=== PATIENT | female | born 1985 | race Caucasian/White ===

== ENCOUNTER 2016-11-05 22:16 | Inpatient (IN) | payer MEDICAID ==
[~2016-11-05 22:16] MED LIST: CLINDAMYCIN 900 MG/D5W RTU 50 ML IV SCH
[2016-11-05] MEDS ORDERED: CLINDAMYCIN 900 MG/D5W RTU 50 ML IV ONE (22:44)
[2016-11-05] MEDS ORDERED: CLINDAMYCIN 900 MG/D5W RTU 50 ML IV SCH (22:45)
[2016-11-05 22:59] LABS: HEMOGLOBIN 10.1 g/dL (12.0-15.5); HGB HCT DIFFERENCE 0.3; MEAN CORPUSCULAR HEMOGLOBIN 28.7 pg (27.0-33.4); MEAN CORPUSCULAR HGB CONC 33.6 g/dL (32.0-36.0); MEAN CORPUSCULAR VOLUME 85 fl (80-97); RED BLOOD COUNT 3.52 10^6/uL (3.72-5.28); RED CELL DISTRIBUTION WIDTH 15.6 % (11.5-14.0); WHITE BLOOD COUNT 23.5 10^3/uL (4.0-10.5)
[2016-11-05 23:16] LABS: BASOPHILS % (MANUAL) 0 % (0-2); EOSINOPHILS % (MANUAL) 1 % (0-6); LYMPHOCYTES % (MANUAL) 19 % (13-45); TOTAL CELLS COUNTED 100
[2016-11-05 23:17] LABS: ANISOCYTOSIS SLIGHT; TOXIC GRANULATION SLIGHT
[2016-11-05] MEDS ORDERED: ONDANSETRON HCL INJ/PF 4 MG/2 ML SDV IV ONE (23:56)
[2016-11-05] MEDS ORDERED: OXYTOCIN/NORMAL SALINE 1,000 ML IV PRN (23:57)
[2016-11-05] MEDS ORDERED: NALBUPHINE HCL INJ 10 MG/1 ML AMPULE ONE (23:59)
[2016-11-05] MEDS ORDERED: OXYTOCIN/NORMAL SALINE 20 UNIT/1,000 ML RTUINJ ONE (23:59)
[2016-11-06] MEDS ORDERED: PROMETHAZINE HCL INJ 25 MG/1 ML VIAL ONE (00:04)
[2016-11-06] MEDS ORDERED: NALBUPHINE HCL INJ 10 MG/1 ML AMPULE INJ ONE (00:06)
[2016-11-06] MEDS ORDERED: PROMETHAZINE HCL INJ 25 MG/1 ML VIAL IV ONE (00:06)
[2016-11-06 00:08] LABS: APPEARANCE,URINE CLOUDY; BILIRUBIN,URINE NEGATIVE (NEGATIVE); GLUCOSE, URINE NEGATIVE (NEGATIVE); KETONES,URINE TRACE mg/dL (NEGATIVE); LEUKOCYTE ESTERASE,URINE SMALL (NEGATIVE); NITRITE,URINE NEGATIVE (NEGATIVE); PROTEIN,URINE 100 mg/dL (NEGATIVE); URINE SPECIFIC GRAVITY 1.016; UROBILINOGEN,URINE NEGATIVE mg/dL (<2.0)
[2016-11-06] MEDS ORDERED: RINGERS SOLUTION,LACTATED 1,000 ML IV PRN (00:14)
[2016-11-06] MEDS: RINGERS SOLUTION,LACTATED 1,000 ML IV PRN ×2 (00:33→17:01)
[2016-11-06 00:34] LABS: URINE BARBITURATES SCREEN NEGATIVE; URINE METHADONE SCREEN NEGATIVE; URINE OPIATES LOW NEGATIVE; URINE PHENCYCLIDINE SCREEN NEGATIVE
[2016-11-06] MEDS ORDERED: CITRIC ACID/SODIUM CITRATE ORAL SOLN 15 ML UDCUP ONE (01:21)
[2016-11-06] MEDS ORDERED: METHYLERGONOVINE MALEATE INJ/PF 0.2 MG/1 ML AMPULE ONE (01:21)
[2016-11-06] MEDS ORDERED: MISOPROSTOL 0.2 MG TABLET ONE (01:21)
[2016-11-06] MEDS ORDERED: METRONIDAZOLE 500 MG/NS RTU 100 ML IV ONE (01:21)
[2016-11-06] MEDS ORDERED: OXYTOCIN 10 UNIT/ML VIAL ONE (01:37)
[2016-11-06] MEDS ORDERED: EPHEDRINE SULFATE INJ 50 MG/1 ML AMPULE ONE (01:37)
[2016-11-06] MEDS ORDERED: OXYTOCIN/NORMAL SALINE 20 UNIT/1,000 ML RTUINJ ONE (01:37)
[2016-11-06] MEDS ORDERED: MIDAZOLAM 2 MG/2 ML INJ ONE (01:37)
[2016-11-06] MEDS ORDERED: FENTANYL CITRATE INJ/PF 100 MCG/2 ML AMPUL ONE ×3 (01:37→03:06)
[2016-11-06] MEDS ORDERED: MORPHINE SULFATE 10 MG/ML INJ ONE ×2 (01:45→03:26)
[2016-11-06] MEDS ORDERED: MORPHINE SULFATE 10 MG/ML INJ IV PRN ×2 (02:40→03:01)
[2016-11-06] MEDS ORDERED: PROMETHAZINE HCL INJ 25 MG/1 ML VIAL IV PRN ×3 (02:40→03:01)
[2016-11-06] MEDS ORDERED: SIMETHICONE 80 MG TAB.CHEW PO PRN (02:40)
[2016-11-06] MEDS ORDERED: ACETAMINOPHEN 100 ML IV PRN (02:40)
[2016-11-06] MEDS ORDERED: OXYCODONE-ACETAMINOPHEN 5-325 MG TABLET PO PRN (02:40)
[2016-11-06] MEDS ORDERED: OXYTOCIN/NORMAL SALINE 20 UNIT/1,000 ML RTUINJ IV PRN (02:40)
[2016-11-06] MEDS ORDERED: MEASLES,MUMPS&RUBELLA VACC/PF 0.5 ML VIAL SUBCUT PRN (02:40)
[2016-11-06] MEDS ORDERED: DIPH/PERTUSS(ACELL)/TETANUS VAC/PF 0.5 ML SYR (>=10YO) IM PRN (02:40)
[2016-11-06] MEDS ORDERED: ACETAMINOPHEN 325 MG TABLET PO PRN (02:40)
[2016-11-06] MEDS ORDERED: KETOROLAC TROMETHAMINE INJ/PF 30 MG/1 ML SDV IV SCH (02:45)
[2016-11-06] MEDS ORDERED: ACETAMINOPHEN 100 ML IV ONE (02:48)
[2016-11-06] MEDS ORDERED: MEPERIDINE HCL/PF INJ 25 MG/1 ML DISP.SYRIN ONE (02:56)
[2016-11-06] MEDS ORDERED: PROPOFOL INJ 200 MG/20 ML VIAL IV ONE (02:58)
[2016-11-06] MEDS ORDERED: MEPERIDINE HCL/PF INJ 25 MG/1 ML DISP.SYRIN IV PRN (03:01)
[2016-11-06] MEDS ORDERED: ONDANSETRON HCL INJ/PF 4 MG/2 ML SDV IV PRN (03:01)
[2016-11-06] MEDS ORDERED: FENTANYL CITRATE INJ/PF 100 MCG/2 ML AMPUL IV PRN ×3 (03:01)
[2016-11-06] MEDS ORDERED: DIPHENHYDRAMINE HCL 50 MG/ML VIAL IV PRN (03:01)
[2016-11-06 03:35] LABS: HEMATOCRIT 24.1 % (36.0-47.0); HEMOGLOBIN 8.2 g/dL (12.0-15.5); HGB HCT DIFFERENCE 0.5; MEAN CORPUSCULAR HEMOGLOBIN 29.1 pg (27.0-33.4); MEAN CORPUSCULAR HGB CONC 34.1 g/dL (32.0-36.0); MEAN CORPUSCULAR VOLUME 85 fl (80-97); RED BLOOD COUNT 2.82 10^6/uL (3.72-5.28); RED CELL DISTRIBUTION WIDTH 15.5 % (11.5-14.0)
[2016-11-06 04:01] LABS: BAND NEUTROPHILS % (MANUAL) 1 % (3-5); BASOPHILS % (MANUAL) 0 % (0-2); EOSINOPHILS % (MANUAL) 0 % (0-6); LYMPHOCYTES % (MANUAL) 10 % (13-45); TOTAL CELLS COUNTED 100
[2016-11-06 04:02] LABS: TOXIC GRANULATION 1+
[2016-11-06 04:03] LABS: ANISOCYTOSIS 1+; POLYCHROMASIA 1+
--- NOTE | 2016-11-06 04:03 | OPERATIVE REPORT E ---
Operative Report NAME: GAURAV PITT : 1985 AGE: 31Y DATE OF SURGERY: 11/06/2016 ROOM: LR200 PREOPERATIVE DIAGNOSES: 1. INTRAUTERINE AT 37 WEEKS AND 1 DAY. 2. NONREASSURING HEART TONES. 3. SUSPECTED PLACENTAL ABRUPTION. POSTOPERATIVE DIAGNOSES: 1. INTRAUTERINE AT 37 WEEKS AND 1 DAY. 2. NONREASSURING HEART TONES. 3. CONFIRMATION OF PLACENTAL ABRUPTION. PROCEDURE PERFORMED: Low transverse hysterotomy section. SURGEON: JORDON ALCOCER M.D. ANESTHESIA: Dr. Short with general. FINDINGS: A male in cephalic presentation with Apgars of 7 and 8. Large blood clots behind the placenta indicative of at least a 50% placental abruption. Normal uterus, tubes, and ovaries. ESTIMATED BLOOD LOSS: 700 mL. PATHOLOGY: Placenta. PROCEDURE IN DETAIL: The patient was taken to the operating room, prepared and draped in a normal sterile fashion in a supine position with a leftward tilt. A transverse skin incision was made with a scalpel and carried to the underlying layer of fascia with the same scalpel. The fascia was excised in the midline and extended laterally bluntly, and the rectus muscle was dissected bluntly from the fascia over the rectus. This muscle was divided, and peritoneal cavity was entered quickly with surgeon's finger pressure. The bladder blade was inserted. Hysterotomy was nicked with the scalpel and extended laterally with surgeon's finger pressure. The was then delivered atraumatically. The nose and mouth were suctioned with the suction bulb. The cord was clamped and cut. The was handed off to waiting pediatricians. The uterus was exteriorized and cleared of clots and debris. The hysterotomy extension down the right sidewall of the cervix was noted. This was closed with 0 Monocryl in a running locked fashion. A second layer of the same suture was used to imbricate to ensure hemostasis. The hysterotomy was inspected and found to be intact and hemostatic. The uterus was then returned to the abdomen. The peritoneal cavity was cleared of clots and debris. The rectus muscle and peritoneum were reapproximated with a mattress stitch of 2-0 Chromic. The fascia was closed with 0 Vicryl. The subcutaneous layer was closed with plain catgut, and the skin was closed with 4-0 Vicryl. The patient tolerated the procedure well. Sponge, lap, and needle counts were correct x2. The patient was taken to recovery in stable condition. DICTATING PHYSICIAN: JORDON ALCOCER M.D. [id number] PHY#: [id number] ID: [id number] JOB#: [id number] ACCT: [id number] cc:JORDON ALCOCER M.D. >
[2016-11-06] MEDS ORDERED: GENTAMICIN SULFATE INJ 80 MG/2 ML VIAL IV ONE (04:13)
[2016-11-06] MEDS ORDERED: GENTAMICIN SULFATE INJ 80 MG/2 ML VIAL ONE (04:24)
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
[2016-11-06] MEDS: IBUPROFEN 800 MG TABLET PO SCH ×3 (05:52→18:24)
[2016-11-06] MEDS ORDERED: METRONIDAZOLE 500 MG/NS RTU 100 ML IV SCH (06:00)
[2016-11-06] MEDS: CLINDAMYCIN 900 MG/D5W RTU 50 ML IV SCH ×3 (06:54→21:57)
--- NOTE | 2016-11-06 07:00 | L&D Flow Sheet ---
LD Flowsheet Datetime Report Generated by CPN: 11/06/2016 07:00 Datetime: 11/06/2016 04:45 Vital Signs Stage of : Recovery (Rianna Ureña RN) NBP Sys/Serene/Mean (mmHg): 117 (QS system process) : 59 (QS system process) : 83 (QS system process) Pulse: 79 (QS system process) Temperature (F): 97.2 (Rianna Ureña RN) Temperature (C): 36.2 (QS system process) Pain Pain Scale: 2 (Rianna Errichiello, RN) Pain Presence: Intermittent (Rianna Errichiello, RN) Pain Type: Ache (Rianna Errichiello, RN) Pain Location: Abdomen (Rianna Errichiello, RN) Pain Goal: 1 (Rianna Errichiello, RN) Datetime: 11/06/2016 04:40 Pulse: 71 (QS system process) SpO2 (%): 100 (QS system process) Datetime: 11/06/2016 04:35 Pulse: 74 (QS system process) SpO2 (%): 100 (QS system process) Datetime: 11/06/2016 04:30 Vital Signs Stage of : Recovery (Rianna Errichiello, RN) NBP Sys/Serene/Mean (mmHg): 115 (QS system process) : 57 (QS system process) : 81 (QS system process) Pulse: 75 (QS system process) Pulse: 70 (QS system process) SpO2 (%): 100 (QS system process) Pain Pain Scale: 2 (Rianna Errichiello, RN) Pain Presence: Intermittent (Rianna Errichiello, RN) Pain Type: Ache (Rianna Errichiello, RN) Pain Location: Abdomen (Rianna Errichiello, RN) Pain Goal: 1 (Rianna Errichiello, RN) Datetime: 11/06/2016 04:25 Pulse: 70 (QS system process) SpO2 (%): 100 (QS system process) Datetime: 11/06/2016 04:20 Pulse: 71 (QS system process) SpO2 (%): 100 (QS system process) Datetime: 11/06/2016 04:15 Vital Signs Stage of : Recovery (Rianna Ureña RN) NBP Sys/Serene/Mean (mmHg): 119 (QS system process) : 59 (QS system process) : 85 (QS system process) Pulse: 69 (QS system process) Pulse: 74 (QS system process) SpO2 (%): 100 (QS system process) Pain Pain Scale: 2 (Rianna Ureña RN) Pain Presence: Intermittent (Rianna Ureña RN) Pain Type: Ache (Rianna Ureña RN) Pain Location: Abdomen (Rianna Ureña RN) Pain Goal: 1 (Rianna Ureña RN) Datetime: 11/06/2016 04:10 Pulse: 82 (QS system process) SpO2 (%): 100 (QS system process) Datetime: 11/06/2016 04:05 Pulse: 73 (QS system process) SpO2 (%): 99 (QS system process) Temperature (F): 97.3 (Rianna Errichiello, RN) Temperature (C): 36.3 (QS system process) Datetime: 11/06/2016 04:00 Vital Signs Stage of : Recovery (Rianna Ureña RN) NBP Sys/Serene/Mean (mmHg): 117 (QS system process) : 56 (QS system process) : 78 (QS system process) Pulse: 72 (QS system process) Pulse: 75 (QS system process) SpO2 (%): 99 (QS system process) Pain Pain Scale: 2 (Rianna Ureña RN) Pain Presence: Intermittent (Rianna Ureña, RN) Pain Type: Ache (Rianna Adelita, RN) Pain Location: Abdomen (Rianna Ureña, RN) Pain Goal: 1 (Rianna Jean Claudeello, RN) Datetime: 11/06/2016 03:55 Pulse: 72 (QS system process) SpO2 (%): 100 (QS system process) Datetime: 11/06/2016 03:50 Pulse: 74 (QS system process) SpO2 (%): 99 (QS system process) Datetime: 11/06/2016 03:45 Vital Signs Stage of : Recovery (Rianna Ureña, RN) NBP Sys/Serene/Mean (mmHg): 117 (QS system process) : 61 (QS system process) : 82 (QS system process) Pulse: 72 (QS system process) Pulse: 69 (QS system process) SpO2 (%): 99 (QS system process) Pain Pain Scale: 4 (Rianna Errichiello, RN) Pain Presence: Intermittent (Rianna Errichiello, RN) Pain Type: Ache (Rianna Errichiello, RN) Pain Location: Abdomen (Rianna Errichiello, RN) Pain Goal: 1 (Rianna Errichiello, RN) Datetime: 11/06/2016 03:40 Pulse: 71 (QS system process) SpO2 (%): 99 (QS system process) Datetime: 11/06/2016 03:35 Pulse: 72 (QS system process) SpO2 (%): 99 (QS system process) Datetime: 11/06/2016 03:30 Vital Signs Stage of : Recovery (Rianna Errichiello, RN) Pulse: 79 (QS system process) SpO2 (%): 99 (QS system process) Pain Pain Scale: 4 (Rianna Ureña RN) Pain Presence: Intermittent (Rianna Ureña RN) Pain Type: Ache (Rianna Errichiello, RN) Pain Location: Abdomen (Rianna Errichiello, RN) Pain Goal: 1 (Rianna Errichiello, RN) Datetime: 11/06/2016 03:25 Pulse: 72 (QS system process) SpO2 (%): 99 (QS system process) Datetime: 11/06/2016 03:20 Pulse: 75 (QS system process) SpO2 (%): 99 (QS system process) Datetime: 11/06/2016 03:15 Vital Signs Stage of : Recovery (Rianna Errichiello, RN) Pulse: 76 (QS system process) SpO2 (%): 98 (QS system process) Pain Pain Scale: 4 (Rianna Errichiello, RN) Pain Presence: Intermittent (Rianna Errichiello, RN) Pain Type: Ache (Rianna Errichiello, RN) Pain Location: Abdomen (Rianna Errichiello, RN) Pain Goal: 1 (Rianna Errichiello, RN) Datetime: 11/06/2016 03:10 Pulse: 75 (QS system process) SpO2 (%): 99 (QS system process) Datetime: 11/06/2016 03:05 Pulse: 81 (QS system process) SpO2 (%): 98 (QS system process) Datetime: 11/06/2016 03:02 SpO2 (%): 83 (QS system process) Datetime: 11/06/2016 03:00 Vital Signs Stage of : Recovery (Rianna Errichiello, RN) Pulse: 76 (QS system process) SpO2 (%): 99 (QS system process) Pain Pain Scale: 4 (Rianna Adelita, RN) Pain Presence: Intermittent (Rianna Michaelichilewis, RN) Pain Type: Ache (Rianna Michaelichiello, RN) Pain Location: Abdomen (Rianna Michaelichiello, RN) Pain Goal: 1 (Rianna Michaelichiello, RN) Datetime: 11/06/2016 02:56 Pulse: 92 (QS system process) SpO2 (%): 92 (QS system process) Datetime: 11/06/2016 02:55 Pulse: 81 (QS system process) SpO2 (%): 97 (QS system process) Datetime: 11/06/2016 02:50 NBP Sys/Serene/Mean (mmHg): 121 (QS system process) : 58 (QS system process) : 84 (QS system process) Pulse: 84 (QS system process) Pulse: 85 (QS system process) SpO2 (%): 100 (QS system process) Temperature Route: Oral (Rianna Errichiello, RN) Pain Pain Scale: 2 (Rianna Errichiello, RN) Pain Presence: Intermittent (Rianna Errichiello, RN) Pain Type: Ache (Rianna Errichiello, RN) Pain Location: Abdomen (Rianna Errichiello, RN) Pain Goal: 1 (Rianna Errichiello, RN) Pain Relief Measures: Pain Medication Given (Rianna Errichiello, RN) Datetime: 11/06/2016 02:46 Vital Signs Stage of : Recovery (Rianna Errichiello, RN) Datetime: 11/06/2016 01:42 Additional Nursing Comments: Pt transported to OR via bed. (Kala Emmanuel, RN) Datetime: 11/06/2016 01:37 NBP Sys/Serene/Mean (mmHg): 122 (QS system process) : 71 (QS system process) : 90 (QS system process) Pulse: 88 (QS system process) Datetime: 11/06/2016 01:31 Communication Comments: Dr Knightshed at b/s (Rianna Errichiello, RN) Datetime: 11/06/2016 01:30 Uterine Activity Monitor Mode: External (Kala Emmanuel, RN) Frequency (min): 2-3 (Kala Emmanuel, RN) Quality: Moderate (Kala Emmanuel, RN) Duration (sec): 50=70 (Kala Emmanuel, RN) Resting Tone (Palpate): Relaxed (Kala Emmanuel, RN) Assessment A Monitor Mode: External US (Kala Emmanuel, RN) FHR Baseline Rate : 150 (Kala Emmanuel, RN) FHR Baseline Changes: No Baseline Change (Kala Emmanuel, RN) Variability: Moderate 6-25 bpm (Kala Emmanuel, RN) Accelerations: None (Kala Emmanuel, RN) Decelerations: Late (Kala Emmanuel, RN) Comments: Lates are consistent now instead of intermittent. (Kala Emmanuel, RN) Datetime: 11/06/2016 01:28 I/O Interventions: Cazares Cath Inserted (Rianna Errichiello, RN) Datetime: 11/06/2016 01:26 Medication Comments: flagyl 500mg IVPB (Rianna Errichiello, RN) Datetime: 11/06/2016 01:25 Antiemetics/Antacids: Bicitra 15 ml PO (Rianna Errichiello, RN) Datetime: 11/06/2016 01:21 Communication Comments: D Matters, [employer] informed of impending . 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 (Kala Emmanuel, RN) Datetime: 11/06/2016 01:16 Communication Communication: Provider at Bedside (Rianna Ureña RN) Communication Comments: Dr Tolentino at b/s, [facility] reviewed and discussed. Decision made for primary c/s. (Rianna Ureña RN) Datetime: 11/06/2016 01:14 Vaginal Exam Dilatation (cm): 3.5 (Rianna Ureña RN) Effacement (%): 50 (Rianna Ureña RN) Station: -1 (Rianna Ureña RN) Exam by: Yanet Jacobo RN (Rianna Ureña RN) Vaginal Exam Comments: Dr Tolentino made aware of SVE (Rianna Ureña RN) Medications Pitocin (milliunit): Pitocin Discontinued (Rianna Errichiello, RN) Datetime: 11/06/2016 01:07 NBP Sys/Serene/Mean (mmHg): 118 (QS system process) : 62 (QS system process) : 83 (QS system process) Pulse: 77 (QS system process) Datetime: 11/06/2016 01:06 Communication Comments: Call placed to Dr Rajan for deceleration, orders received to check pt SVE, MD to come to floor for evaluation of pt (Rianna Errichiello, RN) Datetime: 11/06/2016:00 Uterine Activity Monitor Mode: External (Kala Emmanuel, RN) Frequency (min): 2-5 (Kala Emmanuel, RN) Quality: Moderate (Kala Emmanuel, RN) Duration (sec): 50-60 (Kala Emmanuel, RN) Resting Tone (Palpate): Relaxed (Kala Emmanuel, RN) Assessment A Monitor Mode: External US (Kala Emmanuel, RN) FHR Baseline Rate : 145 (Kala Emmanuel, RN) FHR Baseline Changes: No Baseline Change (Kala Emmanuel, RN) Variability: Moderate 6-25 bpm (Kala Emmanuel, RN) Accelerations: None (Kala Emmanuel, RN) Decelerations: Late (Kala Emmanuel, RN) Datetime: 11/06/2016 00:38 Actions for Decelerations: Side to Side (Rianna Errichiello, RN) Patient Position/Activity: Right Tilt; Semi-Fowlers (Rianna Errichiello, RN) Datetime: 11/06/2016 00:30 Uterine Activity Monitor Mode: External (Kala Emmanuel, RN) Frequency (min): 1-3 (Kala Emmanuel, RN) Quality: Moderate (Kala Emmanuel, RN) Duration (sec): 40-70 (Kala Emmanuel, RN) Pattern: Tachysystole: > 5 Contractions in 10 Minutes (Kala Emmanuel, RN) Resting Tone (Palpate): Relaxed (Kala Emmanuel, RN) Assessment A Monitor Mode: External US (Kala Emmanuel, RN) FHR Baseline Rate : 140 (Kala Emmanuel, RN) FHR Baseline Changes: No Baseline Change (Kala Emmanuel, RN) Variability: Moderate 6-25 bpm (Kala Emmanuel, RN) Accelerations: None (Kala Emmanuel, RN) Decelerations: Late (Kala Emmanuel, RN) Datetime: 11/06/2016 00:15 Medications Pitocin (milliunit): Pitocin Started (milliunits) @ 2 (Rianna Errichiello, RN) Datetime: 11/06/2016 00:10 Analgesics/Sedatives: Nubain (mg) @ 10 (Rianna Errichiello, RN) Antiemetics/Antacids: Phenergan IV (mg) @ 12.5 (Rianna Errichiello, RN) Datetime: 11/06/2016 00:00 Uterine Activity Monitor Mode: External (Kala Emmanuel, RN) Frequency (min): irregular (Kala Emmanuel, RN) Quality: Moderate (Kala Emmanuel, RN) Duration (sec): 30-60 (Kala Emmanuel, RN) Pattern: Normal: <= 5 Contractions in 10 Minutes (Kala Emmanuel, RN) Resting Tone (Palpate): Relaxed (Kala Emmanuel, RN) Contraction Comments: alot of irritability noted. (Kala Emmanuel, RN) Assessment A Monitor Mode: External US (Kala Emmanuel, RN) FHR Baseline Rate : 145 (Kala Emmanuel, RN) FHR Baseline Changes: No Baseline Change (Kala Emmanuel, RN) Variability: Moderate 6-25 bpm (Kala Emmanuel, RN) Accelerations: None (Kala Emmanuel, RN) Decelerations: Early; Late (Kala Emmanuel, RN) Decelerations: Late; Variable (Kala Emmanuel, RN) Comments: occasional late (Kala Emmanuel, RN) Additional Nursing Comments: Care relinquished to Yanet Jacobo RN (Kala Emmanuel, RN) Datetime: 11/05/2016 23:55 Communication Communication: Provider at Bedside (Kala Emmanuel, RN) Datetime: 11/05/2016 23:49 Communication Comments: Dr. Rajan asked to come review strip. (Kala Emmaneul, RN) Datetime: 11/05/2016 23:42 Monitor Interventions for UA: [place] Adjusted (Kala Appiahoon, RN) Datetime: 11/05/2016 23:40 Patient Care Comments: Pt has edge of gown between legs that is saturated. Mod amount of blood noted on towel under patient. (Kala Benitez, RN) Datetime: 11/05/2016 23:38 NBP Sys/Serene/Mean (mmHg): 128 (QS system process) : 59 (QS system process) : 85 (QS system process) Pulse: 85 (QS system process) Datetime: 11/05/2016 23:30 Uterine Activity Monitor Mode: External (Kala Emmanuel, RN) Frequency (min): 1-3 (Kala Emmanuel, RN) Quality: Moderate (Kala Emmanuel, RN) Duration (sec): 30-701 (Kala Emmanuel, RN) Pattern: Normal: <= 5 Contractions in 10 Minutes (Kala Emmanuel, RN) Resting Tone (Palpate): Relaxed (Kala Emmanuel, RN) Contraction Comments: Alot of uterine irritability noted. (Kala Emmanuel, RN) Assessment A Monitor Mode: External US (Kala Emmanuel, RN) FHR Baseline Rate : 140 (Kala Emmanuel, RN) FHR Baseline Changes: No Baseline Change (Kala Emmanuel, RN) Variability: Moderate 6-25 bpm (Kala Emmanuel, RN) Accelerations: None (Kala Emmanuel, RN) Decelerations: Late (Annotations: one noted.) (Kala Benitez, RN) Patient Care Comments: Consent forms signed. (Kala Benitez, RN) Datetime: 11/05/2016 22:52 I/O Interventions: Up to BR (Kala Benitez, RN) Patient Care Comments: Pt states has to have a bm and states has been very constipated. (Kala Benitez, RN) Datetime: 11/05/2016 22:50 Antibiotics: Clindamycin IV 900 mg (Kala Benitez, RN) Datetime: 11/05/2016 22:47 Patient Care IV/Blood Work: Labs Drawn (Kala Emmanuel, RN) Datetime: 11/05/2016 22:44 Frequency (min): pt states unsure (Kala Emmanuel, RN) Pain Pain Scale: 4 (Kala Emmanuel, RN) Pain Presence: Constant (Annotations: constant in back and lower stomach) (Kala Emmanuel, RN) Pain Type: Sharp (Kala Emmanuel, RN) Pain Location: Abdomen; Back (Kala Emmanuel, AMELIE) Vaginal Bleeding: Heavy (Annotations: with some small clots noted. Underwear soaked.) (Kala Benitez, RN) Maternal Assessment Level of Consciousness: Fully Conscious (Kala Benitez, RN) DTR's/Clonus: DTRs 1+ (Kala Benitez, RN) Headache: Denies (Kala Benitez, RN) Breath Sounds, Left: Clear and Equal (Kala Benitez, RN) Breath Sounds, Right: Clear and Equal (Kala Benitez, RN) Nausea/Vomiting: Hx of Nausea/Vomiting (Annotations: some nausea-states is probably because haven't eaten.) (Kala Benitez, RN) RUQ Epigastric Pain: Denies (Kala Benitez, RN) Datetime: 11/05/2016 22:37 NBP Sys/Serene/Mean (mmHg): 135 (QS system process) : 71 (QS system process) : 96 (QS system process) Pulse: 106 (QS system process) Datetime: 11/05/2016 22:32 Communication Communication: Provider at Bedside (Kala Emmanuel, RN) Communication Comments: Dr. Rajan reviewing strip; (Kala Emmanuel, RN) Datetime: 11/05/2016 22:27 Vaginal Exam Dilatation (cm): 3.0 (Kala Benitez, RN) Effacement (%): 70 (Kala Benitez, RN) Station: 0 (Kala Benitez, RN) Exam by: HERNAN Lyn (Kala Benitez, RN) Vaginal Bleeding: Heavy (Kala Benitez RN) Cervix, Consistency: Soft (Kala Benitez, RN) Cervix, Position: Midposition (Kala Benitez, RN) Patient Care IV/Blood Work: IV Started; IV Bolus Started (Kala Benitez RN) Patient Care Comments: 18 g started in L hand per R AMELIE Griffith. 2nd IV attempted in R arm-unsuccessful. (Kala Benitez, AMELIE) Datetime: 11/05/2016 22:26 Communication Comments: Call placed to Dr Tolentino, requesting her presence on unit. Dr Tolentino en route (Kala Benitez RN) Datetime: 11/05/2016 22:19 Membranes Ruptured Date/Time: 11/06/2016 01:59 (Rianna Ureña RN) Membranes Rupture Method: Artificial (Rianna Ureña RN) Amniotic Fluid Color: Clear (Rianna Ureña RN) Amniotic Fluid Amount: Moderate (Rianna Ureña RN) Amniotic Fluid Odor: Normal (Rianna Ureña RN)
[2016-11-06] MEDS ORDERED: LIDOCAINE 2% INJ-PF (20 MG/ML) 10 ML AMPUL ONE (07:38)
[2016-11-06] MEDS ORDERED: DEXAMETHASONE SOD PHOSPHATE INJ 4 MG/1 ML VIAL ONE (07:38)
[2016-11-06] MEDS ORDERED: SUCCINYLCHOLINE CHLORIDE INJ 200 MG/10 ML VIAL ONE (07:38)
[2016-11-06] MEDS ORDERED: KETOROLAC TROMETHAMINE 60 MG/2 ML SDV ONE (07:38)
[2016-11-06] MEDS ORDERED: ONDANSETRON HCL INJ/PF 4 MG/2 ML SDV ONE (07:38)
[2016-11-06] MEDS ORDERED: METOCLOPRAMIDE HCL INJ/PF 10 MG/2 ML SDV ONE (07:38)
[2016-11-06] MEDS: OXYCODONE-ACETAMINOPHEN 5-325 MG TABLET PO PRN ×3 (08:31→20:01)
[2016-11-06] MEDS: PRENATAL VITAMIN W-O CA NO5/FE FUMARATE/FA CAPSULE PO SCH (09:45)
[2016-11-06] MEDS: DOCUSATE SODIUM 100 MG CAPSULE PO SCH ×2 (09:45→18:23)
[2016-11-06] MEDS: KETOROLAC TROMETHAMINE INJ/PF 30 MG/1 ML SDV IV SCH ×2 (09:45→18:23)
[2016-11-06 10:29] LABS: WHITE BLOOD COUNT 32.3 10^3/uL (4.0-10.5)
--- NOTE | 2016-11-06 12:35 | PDOC PROGRESS REPORT ---
Subjective-OB Subjective: Post Delivery Day: 31 year old. Denies any needs at this time Physical Exam (OB) Vital Signs: Temp Pulse Resp BP Pulse Ox 98.0 F 74 20 118/55 L 97 11/06/16 09:21 11/06/16 09:21 11/06/16 09:21 11/06/16 09:21 11/06/16 09:21 Intake & Output 11/05/16 11/06/16 11/07/16 06:59 06:59 06:59 Weight 96 kg - Dressing Removed: No - opsite Incision: Dressing, Well Approximated - Lochia Lochia Amount: Scant < 10 ml Lochia Color: Rubra/Red - Abdomen Description: Soft, Round Hernia Present: No Bowel Sounds: Normoactive Flatus Presence: Absent Stool: No Fundal Description: Firm Fundal Height: u/u - u/2 Objective-Diagnostic Laboratory: 11/06/16 03:07 11/05/16 11/05/16 11/05/16 22:49 22:49 23:00 WBC 23.5 H RBC 3.52 L Hgb 10.1 L Hct 30.0 L MCV 85 MCH 28.7 MCHC 33.6 RDW 15.6 H Plt Count 296 Seg Neutrophils % Not Reportable Lymphocytes % Not Reportable Monocytes % Not Reportable Eosinophils % Not Reportable Basophils % Not Reportable Absolute Neutrophils Not Reportable Absolute Lymphocytes Not Reportable Absolute Monocytes Not Reportable Absolute Eosinophils Not Reportable Absolute Basophils Not Reportable Urine Color RED Urine Appearance CLOUDY Urine pH 6.0 Ur Specific [place] 1.016 Urine Protein 100 H Urine Glucose (UA) NEGATIVE Urine Ketones TRACE H Urine Blood LARGE H Urine Nitrite NEGATIVE Ur Leukocyte Esterase SMALL H Blood Type A POSITIVE Antibody Screen NEGATIVE 11/06/16 03:07 WBC 32.3 H* RBC 2.82 L Hgb 8.2 L Hct 24.1 L MCV 85 MCH 29.1 MCHC 34.1 RDW 15.5 H Plt Count 242 Seg Neutrophils % Not Reportable Lymphocytes % Not Reportable Monocytes % Not Reportable Eosinophils % Not Reportable Basophils % Not Reportable Absolute Neutrophils Not Reportable Absolute Lymphocytes Not Reportable Absolute Monocytes Not Reportable Absolute Eosinophils Not Reportable Absolute Basophils Not Reportable Urine Color Urine Appearance Urine pH Ur Specific [place] Urine Protein Urine Glucose (UA) Urine Ketones Urine Blood Urine Nitrite Ur Leukocyte Esterase Blood Type Antibody Screen
[2016-11-06] MEDS ORDERED: GENTAMICIN SULFATE/PF INJ 20 MG/2 ML VIAL IV SCH (14:00)
[2016-11-06] MEDS: GENTAMICIN SULFATE 80 MG in DEXTROSE 5%-WATER 100 ML IV SCH ×2 (15:41→22:58)
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
[2016-11-07] MEDS: IBUPROFEN 800 MG TABLET PO SCH ×4 (00:37→18:14)
[2016-11-07] MEDS: OXYCODONE-ACETAMINOPHEN 5-325 MG TABLET PO PRN ×5 (00:38→20:49)
[2016-11-07] MEDS: KETOROLAC TROMETHAMINE INJ/PF 30 MG/1 ML SDV IV SCH ×2 (01:16→09:42)
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
[2016-11-07] MEDS: RINGERS SOLUTION,LACTATED 1,000 ML IV PRN (06:03)
[2016-11-07] MEDS: GENTAMICIN SULFATE 80 MG in DEXTROSE 5%-WATER 100 ML IV SCH (07:26)
[2016-11-07 07:38] LABS: HEMATOCRIT 18.5 % (36.0-47.0); HGB HCT DIFFERENCE 0.1; MEAN CORPUSCULAR HEMOGLOBIN 28.9 pg (27.0-33.4); MEAN CORPUSCULAR HGB CONC 33.4 g/dL (32.0-36.0); MEAN CORPUSCULAR VOLUME 86 fl (80-97); RED BLOOD COUNT 2.15 10^6/uL (3.72-5.28); RED CELL DISTRIBUTION WIDTH 15.4 % (11.5-14.0); WHITE BLOOD COUNT 21.2 10^3/uL (4.0-10.5)
[2016-11-07 08:22] LABS: BASOPHILS % (MANUAL) 0 % (0-2); EOSINOPHILS % (MANUAL) 0 % (0-6); LYMPHOCYTES % (MANUAL) 25 % (13-45); TOTAL CELLS COUNTED 100
[2016-11-07 08:24] LABS: ANISOCYTOSIS SLIGHT; HYPOCHROMASIA 1+; POLYCHROMASIA SLIGHT; TOXIC GRANULATION SLIGHT
[2016-11-07 08:30] LABS: HEMOGLOBIN 6.2 g/dL (12.0-15.5)
[2016-11-07] MEDS: PRENATAL VITAMIN W-O CA NO5/FE FUMARATE/FA CAPSULE PO SCH (09:41)
[2016-11-07] MEDS: DOCUSATE SODIUM 100 MG CAPSULE PO SCH ×2 (09:41→18:13)
--- NOTE | 2016-11-07 10:07 | PDOC PROGRESS REPORT ---
Subjective-OB Subjective: Post Delivery Day: 1 31 year old. Denies any needs at this time, states lochia is stable, pain is well controlled, voiding without difficulty. Passing gas, tolerating diet. Physical Exam (OB) Vital Signs: Temp Pulse Resp BP Pulse Ox 98.0 F 72 14 103/47 L 100 11/07/16 08:02 11/07/16 08:02 11/07/16 08:02 11/07/16 08:02 11/07/16 08:02 Intake & Output 11/06/16 11/07/16 11/08/16 06:59 06:59 06:59 Intake Total 2225 Output Total 2100 Balance 125 Weight 96 kg - Dressing Removed: No - opsite Incision: Dressing, Well Approximated - Lochia Lochia Amount: Scant < 10 ml Lochia Color: Rubra/Red - Abdomen Description: Soft, Round Hernia Present: No Fundal Description: Firm, Midline Fundal Height: u/u - u/2 Objective-Diagnostic Laboratory: 11/07/16 07:11 11/06/16 11/07/16 03:07 07:11 WBC 32.3 H* 21.2 H RBC 2.82 L 2.15 L Hgb 8.2 L 6.2 L Hct 24.1 L 18.5 L MCV 85 86 MCH 29.1 28.9 MCHC 34.1 33.4 RDW 15.5 H 15.4 H Plt Count 242 211 Seg Neutrophils % Not Reportable Lymphocytes % Not Reportable Monocytes % Not Reportable Eosinophils % Not Reportable Basophils % Not Reportable Absolute Neutrophils Not Reportable Absolute Lymphocytes Not Reportable Absolute Monocytes Not Reportable Absolute Eosinophils Not Reportable Absolute Basophils Not Reportable Assessment and Plan(PN) - Assessment and Plan (1) Delivery by emergency caesarean section Is this a current diagnosis for this admission?: YesPlan: routine pp care (2) History of bilateral breast reduction surgery Is this a current diagnosis for this admission?: Yes (3) Anemia Qualifiers: Anemia type: other cause Other causes of anemia: other cause, not classified Qualified Code(s): D64.89 - Other specified anemias Is this a current diagnosis for this admission?: YesPlan: ferrous sulfate increase dietary iron - Time Spent with Patient Time with patient: Less than 15 minutes Critical Time spent with patient: Less than 15 minutes Medications reviewed and adjusted accordingly: Yes - Disposition Anticipated Discharge: Home Within: within 24 hours
[2016-11-07 11:00] LABS: PATH REVIEW PATHOLOGIST REVIEWED
[2016-11-07 11:02] LABS: PATH REVIEW PATHOLOGIST REVIEWED
[2016-11-07] MEDS: FERROUS SULFATE 325 MG TABLET PO SCH ×2 (14:40→18:13)
[2016-11-08] MEDS: IBUPROFEN 800 MG TABLET PO SCH ×3 (00:10→12:07)
[2016-11-08] MEDS: OXYCODONE-ACETAMINOPHEN 5-325 MG TABLET PO PRN ×3 (04:21→16:32)
[2016-11-08 06:21] LABS: HEMATOCRIT 18.2 % (36.0-47.0); HGB HCT DIFFERENCE 0.1; MEAN CORPUSCULAR HEMOGLOBIN 29.3 pg (27.0-33.4); MEAN CORPUSCULAR HGB CONC 33.6 g/dL (32.0-36.0); MEAN CORPUSCULAR VOLUME 87 fl (80-97); RED BLOOD COUNT 2.08 10^6/uL (3.72-5.28); RED CELL DISTRIBUTION WIDTH 15.5 % (11.5-14.0)
[2016-11-08 07:01] LABS: HEMOGLOBIN 6.1 g/dL (12.0-15.5)
[2016-11-08 07:03] LABS: BASOPHILS % (MANUAL) 0 % (0-2); EOSINOPHILS % (MANUAL) 1 % (0-6); LYMPHOCYTES % (MANUAL) 32 % (13-45); TOTAL CELLS COUNTED 100
[2016-11-08 07:06] LABS: ANISOCYTOSIS SLIGHT; POLYCHROMASIA SLIGHT
[2016-11-08] MEDS: DOCUSATE SODIUM 100 MG CAPSULE PO SCH (10:31)
[2016-11-08] MEDS: PRENATAL VITAMIN W-O CA NO5/FE FUMARATE/FA CAPSULE PO SCH (10:31)
[2016-11-08] MEDS: FERROUS SULFATE 325 MG TABLET PO SCH ×2 (10:31→14:44)
[2016-11-08 11:36] VITALS: BP 110/52
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
--- NOTE | 2016-11-12 17:51 | Delivery Summary ---
Del Sum A-C Datetime Report Generated by CPN: 11/12/2016 17:51 ADMISSION DATA Chief Complaint: Uterine Contractions; Vaginal Bleeding Indication for Induction: Indicated by Testing Admission Impression: Term, Intrauterine ; Ruptured Membranes Admission Impression Comments: possible abruption Admit Provider Comments: monitoring displaying continued worsening late decelerations. bleeding continued. decision for c/section d/w pt and FOB. declines BTL. to OR for stat c/section DELIVERY PERSONNEL Delivery Doctor:: Minoo Tolentino MD Anesthesiologist:: Yakelin Short MD AMBULANCE DISPATCHER:: Ivania Vaughn CRNA Golf Ball Molder:: Rianna Jacobo RN Neonatal Nurse Practitioner:: LU Jenkins Nursery Nurse:: Ashley Cotto RN Nursery Nurse:: Cynthia Hernandez RN Operations Administrator/LOZENGE MAKER: Soniya Figueroa, ST Operations Administrator/LOZENGE MAKER: Tatum Daley, ST MATERNAL INFORMATION Delivery Anesthesia: General Medications After Delivery: Pitocin Bolus-Please Comment Meds After Delivery Comment: 40 units total Maternal Complications: Abruptio Placenta LABOR SUMMARY EDC: 11/26/2016 00:00 No. Babies in Womb: 1 Attempted: No Labor Anesthesia: None LABOR INFORMATION Reason for Induction: Not Applicable Group B Beta Strep: unknown Antibiotics # of Doses: 1 Antibiotics Time of Last Dose: 2300 Name of Antibiotic Given: Clindamycin Steroids Given: None Reason Steroids Not Administered: Not Applicable MEMBRANES Membranes Rupture Method: Artificial Rupture of Membranes: 11/06/2016 01:59 Length of Rupture (hr): 0.02 Amniotic Fluid Color: Clear Amniotic Fluid Amount: Moderate Amniotic Fluid Odor: Normal STAGES OF LABOR Stage 3 hr: 0 Stage 3 min: 2 VAGINAL DELIVERY Episiotomy: None Laceration Extension: N/A Laceration Type: None CSECTION DELIVERY Primary Indication: Abruptio Placenta Secondary Indication: Nonreassuring Status CSection Urgency: Non-Scheduled CSection Incidence: Primary Labor: Labor Elective: N/A CSection Incision: Lower Uterine Transverse BABY A INFORMATION Delivery Date/Time: 11/06/2016 02:00 Method of Delivery: Born in Route : No : N/A Forceps: N/A Vacuum Extraction: N/A Shoulder Dystocia : No PRESENTATION/POSITION BABY A Presentation: Cephalic Cephalic Presentation: Vertex Breech Presentation: N/A PLACENTA INFORMATION BABY A Placenta Delivery Time : 11/06/2016 02:02 Placenta Method of Delivery: Manual Removal Placenta Status: Delivered SCORES BABY A Heart Rate 1 min: >100 bpm Resp Effort 1 min: Good Cry Reflex Irritability 1 min: Cough or Sneeze or Pulls Away Muscle Tone 1 min: Some Flexion of Extremities Color 1 min: Blue/Pale SCORE 1 MIN: 7 Heart Rate 5 min: >100 bpm Resp Effort 5 min: Good Cry Reflex Irritability 5 min: Cough or Sneeze or Pulls Away Muscle Tone 5 min: Some Flexion of Extremities Color 5 min: Body Damar, Extremities Blue SCORE 5 MIN: 8 INFORMATION BABY A Gestational Age at Delivery: 37.1 Gestational Status: Early Term- 37- 38.6 Weeks Infant Outcome : Liveborn Condition : Stable Sex: Male IDENTIFICATION BABY A Infant Verification Date/Time: 11/06/2016 02:10 ID Band Number: [id number] Mother's Name Verified: Yes Infant RN Verifying : R Emmanuel, RNC Additional Verifying Personnel: R Nguyen, LOZENGE MAKER WEIGHT/LENGTH BABY A Birthweight (gm): 3175 Weight (lb): 7 Infant Weight (oz): 0 Infant Length (in): 19.50 Length (cm): 49.53 CORD INFORMATION BABY A No. Cord Vessels: 3 Nuchal Cord : N/A Cord Blood Taken: Yes-For Storage (Mom's Blood type +) ASSESSMENT BABY A Skin to Skin: No BABY B INFORMATION : N/A
== END 2016-11-08 17:33 | disposition home or self-care (01) | DRG 766 ==
LOC: LC 22:16 → LR 22:43 → 2S 11-06 04:50
PROVIDERS: ADMIT Obstetrics & Gynecology; ATTEND Obstetrics & Gynecology
PROC: 10D00Z1 Extraction of Products of Conception, Low, Open Approach (ICD-10-PCS; principal; 2016-11-06)
PROC: 4A1HXCZ Monitoring of Products of Conception, Cardiac Rate, External Approach (ICD-10-PCS; 2016-11-06)
PROC: 3E0234Z Introduction of Serum, Toxoid and Vaccine into Muscle, Percutaneous Approach (ICD-10-PCS; 2016-11-08)
DX: O45.93 Premature separation of placenta, unspecified, third trimester (principal); O76 Abnormality in fetal heart rate and rhythm complicating labor and delivery; O99.02 Anemia complicating childbirth; D64.89 Other specified anemias; O99.334 Smoking (tobacco) complicating childbirth; F17.210 Nicotine dependence, cigarettes, uncomplicated; O99.214 Obesity complicating childbirth; E66.9 Obesity, unspecified; Z68.33 Body mass index [BMI] 33.0-33.9, adult; Z23 Encounter for immunization; Z3A.37 37 weeks gestation of pregnancy; Z37.0 Single live birth
CPT/HCPCS: 1961; 36415; 80307; 81005; 85025; 86592; 86850; 86900; 86901; 88307; 90715; 94799; J0131; J0330; J1100; J1580; J1885; J2175; J2210; J2250; J2270; J2300; J2405; J2550; J2590; J2704; J2765; J3010; J3490; J7120

== ENCOUNTER 2018-03-01 13:53 | Emergency (ER) | payer SELFPAY ==
[2018-03-01 14:18] VITALS: BP 134/77
[2018-03-01] MEDS ORDERED: LIDOCAINE 2% VISCOUS SOLN 20 ML UDCUP PO ONE (14:39)
[2018-03-01] MEDS ORDERED: HYDROCODONE/ACETAMINOPHEN 5-325 MG (6 TAB/ER DISP) PO PRN (14:39)
--- NOTE | 2018-03-01 14:46 | ER Document Report ---
HPI - HPI Pain Level: 5 Notes: Patient is a 32-year-old female with no significant past medical history who presents to the ED complaining of right lower jaw pain and swelling times 1-2 days. Patient states that the swelling primarily started this morning. Patient states that she does have associated pain that does not radiate. She is still able to eat and drink, but does have a decreased p.o. intake due to the pain. She has not noticed any obvious abscess or purulent discharge. Denies any headache, fever, head injury, neck pain, URI, sore throat, chest pain , palpitations, syncope, cough, shortness of breath, wheeze, dyspnea, abdominal pain, nausea/vomiting/diarrhea, urinary retention, dysuria, hematuria, or rash. - ROS Systems Reviewed and Negative: Yes All other systems reviewed and negative - REPRODUCTIVE Reproductive: REPORTS: : Past Medical History - Social History Smoking Status: Unknown if Ever Smoked Family History: None Pulmonary Medical History: Denies: Hx Tuberculosis Psychiatric Medical History: Reports: Hx Depression Past Surgical History: Reports: Hx Breast Surgery - breast reduction, Hx Kidney (Renal Surgery) - kidney stone removal, Hx Tubal Ligation - Immunizations Hx Diphtheria, Pertussis, Tetanus Vaccination: Yes Vertical Provider Document - CONSTITUTIONAL Agree With Documented VS: Yes Notes: PHYSICAL EXAMINATION: GENERAL: Well-appearing, well-nourished and in no acute distress. HEAD: Atraumatic, normocephalic. EYES: Pupils equal round and reactive to light, extraocular movements intact, sclera anicteric, conjunctiva are normal. ENT: EAC clear b/l. TM's intact b/l without erythema, fluid, or perforation. Nares patent and without discharge. oropharynx clear without exudates. No tonsilar hypertrophy or erythema. Moist mucous membranes. No sinus tenderness. Uvula midline. No palatine shift. No tongue protrusion. No respiratory compromise. Mouth: Poor dentition. + severe decay and mild gingivitis. No obvious abscess or discharge noted. + rt lower jaw/facial swelling. + tenderness to tooth #31. NECK: Normal range of motion, supple without lymphadenopathy. No rigidity/ meningismus. LUNGS: Breath sounds clear to auscultation bilaterally and equal. No wheezes rales or rhonchi. HEART: Regular rate and rhythm without murmurs, rubs, gallops. NEUROLOGICAL: Cranial nerves grossly intact. Normal speech, normal gait. PSYCH: Normal mood, normal affect. SKIN: Warm, Dry, normal turgor, no rashes or lesions noted. - INFECTION CONTROL TRAVEL OUTSIDE OF THE [place] IN LAST 30 DAYS: No Course - Re-evaluation Re-evalutation: 03/01/18 14:44 Patient is an afebrile, well-hydrated, 32-year-old female who presents to the ED with dental pain, suspect nerve root etiology versus infection. Vitals are acceptable. PE is otherwise unremarkable. No I&D, labs, or imaging warranted at this time based on H&P. Viscous lidocaine dispensed today. I will send her home with a prescription for cleocin. Allergy to PCN's. Low suspicion for any meningitis, sepsis, peritonsillar/pharyngeal abscess, respiratory compromise, Pranav's, temporal arteritis, or other emergent systemic condition at this time. Patient is aware this condition can change from initial presentation and she needs to monitor symptoms closely. Conservative measures otherwise for symptoms. Call to schedule an appointment with a dentist for further evaluation and management. Recheck with your PCM this week as well. Return to the ED with any worsening/concerning symptoms otherwise as reviewed in discharge. Patient is in agreement. - Vital Signs Vital signs: Temp Pulse Resp BP Pulse Ox 98.7 F 84 16 134/77 H 98 03/01/18 14:17 03/01/18 14:17 03/01/18 14:17 03/01/18 14:17 03/01/18 14:17 Discharge - Discharge Clinical Impression: Pain, dental Condition: Stable Disposition: HOME, SELF-CARE Instructions: Toothache ([facility]), Clindamycin ([facility]) Additional Instructions: Turner and floss twice daily Maintain fluid intake Take antibiotics as directed Mouthwash, salt water gargles, peroxide rinse as needed Tylenol/ibuprofen as needed Recheck with PCM this week Call tomorrow and schedule an appointment with your dentist for further evaluation Return to the ED with any worsening symptoms and/or development of fever, headache, facial swelling, swelling of lips/tongue/throat, trouble swallowing, drooling, hoarseness, neck pain/stiffness, chest pain, palpitations, syncope, shortness of breath, trouble breathing, abdominal pain, n/v/d, numbness/tingling , or other worsening symptoms that are concerning to you. Prescriptions: Clindamycin HCl [Cleocin 300 mg Capsule] 300 mg PO TID #30 capsule Forms: Elevated Blood Pressure Referrals: [facility] [Provider Group] - Follow up as needed JASMIN TORO MD [ACTIVE STAFF] - Follow up in 3-5 days
== END 2018-03-01 14:58 | disposition home or self-care (01) ==
LOC: ER 13:53
DX: K08.89 Other specified disorders of teeth and supporting structures (principal); R68.84 Jaw pain; R22.0 Localized swelling, mass and lump, head; R63.0 Anorexia
CPT/HCPCS: 99282; J3490

== ENCOUNTER 2019-01-12 11:28 | Emergency (ER) | payer OTHER ==
[2019-01-12] MEDS ORDERED: KETOROLAC TROMETHAMINE 60 MG/2 ML SDV IM ONE (11:48)
[2019-01-12] MEDS ORDERED: LIDOCAINE 5% (700 MG) TRANSDERMAL ADH..PATCH TP ONE (11:48)
--- NOTE | 2019-01-12 11:52 | ER Document Report ---
ED Neck/Back Problem - General Chief Complaint: Back Pain Stated Complaint: BACK INJURY Time Seen by Provider: 01/12/19 11:47 Mode of Arrival: Ambulatory Information source: Patient Notes: 33-year-old female presented to ED for low back pain after lifting a tote of sunscreen at work. She states she felt some shift in her lower back. She states she does have low back pain. She states it radiates to the right hip. She has a history of a breast reduction and ectopic with a removal of the left tube and ovary. She states she smokes a pack a day drinks daily and works at [employer] and lives with her significant other. Patient denies any loss of control of bowel bladder, saddle anesthesia, loss of control or sensation to her lower extremities. TRAVEL OUTSIDE OF THE [place] IN LAST 30 DAYS: No - HPI Patient complains to provider of: Pain, Lower back Onset: This morning Where: Work Onset: Sudden Timing: Still present Quality of pain: Sharp Severity: Moderate Pain Level: 3 Context: Lifting Recent injury: Possibly Associated symptoms: Like prior neck/back pain, Lower back pain, Other. denies: Constipation, Incontinence, Motor loss, Numbness/tingling, Radiation to arm, Radiation to chest, Radiation to leg - Radiates to the hip, Unable to urinate Relieved by: Upright position Similar symptoms previously: Yes Recently seen / treated by doctor: No - Related Data Allergies/Adverse Reactions: codeine [Codeine] Allergy (Mild, Verified 11/05/16 22:45) Urticaria Penicillins Allergy (Unknown, Verified 11/05/16 22:45) Past Medical History - General Information source: Patient - Social History Smoking Status: Current Every Day Smoker Cigarette use (# per day): Yes - Pack per day Smoking Education Provided: Yes - 4 minutes Frequency of alcohol use: Heavy - Daily Drug Abuse: None Lives with: Spouse/Significant other Family History: None Patient has suicidal ideation: No Patient has homicidal ideation: No - Past Medical History Cardiac Medical History: Reports: None Pulmonary Medical History: Reports: None EENT Medical History: Reports: None Neurological Medical History: Reports: None Endocrine Medical History: Reports: None Renal/ Medical History: Reports: Hx Ectopic Malignancy Medical History: Reports: None GI Medical History: Reports: None Musculoskeletal Medical History: Reports Hx Arthritis, Reports Hx Musculoskeletal Trauma Skin Medical History: Reports None Psychiatric Medical History: Reports: Hx Depression Traumatic Medical History: Reports: None Infectious Medical History: Reports: None Past Surgical History: Reports: Hx Breast Surgery - breast reduction, Hx Section, Hx Kidney (Renal Surgery) - kidney stone removal, Hx Tubal Ligation - Immunizations Hx Diphtheria, Pertussis, Tetanus Vaccination: Yes Review of Systems - Review of Systems Constitutional: No symptoms reported EENT: No symptoms reported Cardiovascular: No symptoms reported Respiratory: No symptoms reported Gastrointestinal: No symptoms reported Genitourinary: No symptoms reported Female Genitourinary: No symptoms reported Musculoskeletal: Back pain, Muscle stiffness Skin: No symptoms reported Hematologic/Lymphatic: No symptoms reported Neurological/Psychological: No symptoms reported Physical Exam - Vital signs Vitals: Temp Pulse Resp BP Pulse Ox 97.9 F 82 16 141/77 H 97 01/12/19 11:41 01/12/19 11:41 01/12/19 11:41 01/12/19 11:41 01/12/19 11:41 Interpretation: Normal - General General appearance: Appears well, Alert - HEENT Head: Normocephalic, Atraumatic Eyes: Normal Pupils: PERRL - Respiratory Respiratory status: No respiratory distress Chest status: Nontender Breath sounds: Normal Chest palpation: Normal - Cardiovascular Rhythm: Regular Heart sounds: Normal auscultation Murmur: No - Abdominal Inspection: Normal Distension: No distension Bowel sounds: Normal Tenderness: Nontender Organomegaly: No organomegaly - Back Back: Normal, Tender, Vertebra tenderness - Lumbar. No: Deformity/step-off, CVA tenderness, Scars, Scoliosis, Wounds - Extremities General upper extremity: Normal inspection, Nontender, Normal color, Normal ROM, Normal temperature General lower extremity: Normal inspection, Nontender, Normal color, Normal ROM, Normal temperature, Normal weight bearing. No: June's sign - Neurological Neuro grossly intact: Yes Cognition: Normal Orientation: AAOx4 [place] Coma Scale Eye Opening: Spontaneous [place] Coma Scale Verbal: Oriented [place] Coma Scale Motor: Obeys Commands [place] Coma Scale Total: 15 Speech: Normal Motor strength normal: LUE, RUE, LLE, RLE Sensory: Normal - Psychological Associated symptoms: Normal affect, Normal mood - Skin Skin Temperature: Warm Skin Moisture: Dry Skin Color: Normal Course - Re-evaluation Re-evalutation: 01/12/19 13:30 After performing a Medical Screening Examination, I estimate there is LOW risk for EXPANDING OR RUPTURED ABDOMINAL AORTIC ANEURYSM, CAUDA EQUINA SYNDROME, EPIDURAL MASS LESION, or HERNIATED DISK CAUSING SEVERE SPINAL STENOSIS, thus I consider the discharge disposition reasonable. I have reevaluated this patient multiple times and no significant life threatening changes are noted. The patient and I have discussed the diagnosis and risks, and we agree with discharging home and close follow-up. We also discussed returning to the Emergency Department immediately if new or worsening symptoms occur with the understanding that symptoms and presentations can change. We have discussed the symptoms which are most concerning (e.g., saddle anesthesia, urinary or bowel incontinence or retention, changing or worsening pain) that necessitate immediate return. - Vital Signs Vital signs: Temp Pulse Resp BP Pulse Ox 97.9 F 74 16 117/75 99 01/12/19 13:43 01/12/19 13:43 01/12/19 13:43 01/12/19 13:43 01/12/19 13:43 - Diagnostic Test Radiology reviewed: Image reviewed, Reports reviewed Discharge - Discharge Clinical Impression: Low back pain Qualifiers: Chronicity: acute Back pain laterality: bilateral Sciatica presence: with sciatica Sciatica laterality: sciatica of right side Qualified Code(s): M54.41 - Lumbago with sciatica, right side Condition: Stable Disposition: HOME, SELF-CARE Instructions: Family Physicians / Practices Additional Instructions: LOW BACK PAIN: Three out of every four people will have an episode of disabling back pain during their lifetime. Most commonly the pain is due to straining of the muscles and ligaments in the low back. Usual treatment includes: (1) Rest on a firm surface. Avoid lying on your stomach. (2) Ice pack the painful area. After a few days, gentle heat may be used intermittently to relax the area, or ice packs can be continued. (3) Medication may be needed -- muscle relaxers and antiinflammatory medicines are commonly used. (4) As the back improves, exercises are prescribed to strengthen the back and abdominal muscles. Your doctor will advise you on the proper care for your back at each stage in your recovery. You may be better in a few days -- or healing may take several weeks. If new symptoms of a "herniated disc" (radiation of pain, numbness, or tingling down the back of the leg or weakness in the leg) occur, you should be re-examined. Further testing may be necessary. Toradol Injection You have been given an injection of ketorolac tromethamine (Toradol). This is an excellent, safe drug for pain control. It also has potent ant iinflammatory action. You should have significant pain relief within about one hour. Toradol is not addicting and is non-sedating. It does not interfere with driving or work. Call or return if you develop itching, hives, shortness of breath, or rash. MUSCLE RELAXERS: Muscle relaxing medications are usually prescribed for acute muscle spasm or injury to the neck and back. They are often combined with antiinflammatory pain medication for increased relief. You may stop the muscle relaxer when the pain and stiffness have improved. Start the medication again if spasms recur. Muscle relaxers may cause drowsiness, especially with the first dose. Do not operate machinery or drive while under the effects of the medication. Most muscle relaxers last up to 24 hours. Do not combine the medication with alcohol. ICE PACKS: Apply ice packs frequently against the painful area. Many different schedules are recommended, such as "20 minutes on, 20 minutes off" or "one hour ice, two hours rest." If you need to work, you may need to go longer between ice treatments. You should plan to have the area ice packed AT LEAST one fourth of the time. The ice should be applied over the wrap, tape, or splint, or over a layer of cloth -- not directly against the skin. Some ice bags have a built-in cloth and can be put directly on the skin. WARM PACKS: After approximately two days, apply gentle heat (such as a heating pad or hot water bottle) for about 20 to 30 minutes about every two hours -- at least four times daily. Warmth and elevation will help you make a more rapid recovery, and will ease the pain considerably. Do not use HOT heat, and never apply heat for longer than 30 minutes. The continuous heat can invisibly damage skin and muscles -- even when no burn is seen on the surface. Damaged muscles can make you MORE sore. FOLLOW-UP CARE: If you have been referred to a physician for follow-up care, call the physician s office for an appointment as you were instructed or within the next two days. If you experience worsening or a significant change in your symptoms, notify the physician immediately or return to the Emergency Department at any time for re-evaluation. Prescriptions: Cyclobenzaprine HCl [Flexeril 10 mg Tablet] 10 mg PO TIDP PRN #15 tab PRN Reason: Forms: Elevated Blood Pressure, Smoking Cessation Education, Return to Work
--- NOTE | 2019-01-12 12:52 | RADIOLOGY REPORT (SQ) ---
EXAM DESCRIPTION: L SPINE WHOLE COMPLETED DATE/TIME: 01/12/2019 12:39 pm REASON FOR STUDY: low back pain COMPARISON: None. NUMBER OF VIEWS: Five views including obliques. TECHNIQUE: AP, lateral, oblique, and sacral radiographic images acquired of the lumbar spine. LIMITATIONS: None. FINDINGS: MINERALIZATION: Normal. SEGMENTATION: Normal. No transitional anatomy. ALIGNMENT: Normal. VERTEBRAE: Maintained height. No fracture or worrisome bone lesion. DISCS: Preserved height. No significant osteophytes or end plate irregularity. POSTERIOR ELEMENTS: Pedicles and facets are intact. No pars defect or posterior arch defects. HARDWARE: None in the spine. PARASPINAL SOFT TISSUES: Normal. PELVIS: Intact as visualized. No fractures or worrisome bone lesions. SI joints intact. OTHER: No other significant finding. IMPRESSION: NORMAL 5 VIEW LUMBAR SPINE. TECHNICAL DOCUMENTATION: JOB ID: [id number] [employer]- All Rights Reserved Reading location - IP/workstation name: [email or web address]
[2019-01-12 13:51] VITALS: BP 117/75
== END 2019-01-12 14:00 | disposition home or self-care (01) ==
LOC: ER 11:28
DX: M54.41 Lumbago with sciatica, right side (principal); F17.210 Nicotine dependence, cigarettes, uncomplicated; Z88.6 Allergy status to analgesic agent; Z88.0 Allergy status to penicillin
CPT/HCPCS: 99406; 99283; 96372; 36415; 84703; 72110; J1885